=== PATIENT | male | born 1945 | race Caucasian/White ===

== ENCOUNTER → 2022-01-04 12:34 | Outpatient (CLI) | payer MEDICARE, SELFPAY ==
--- NOTE | ~2022-01-04 | CT_ITS ---
EXAMINATION: CT brain wo con DATE: 01/04/2022 13:08 INDICATION: Headaches TECHNIQUE: Computed tomography (CT) of the head was performed without intravenous contrast. The mA wa s adjusted according to patient size. Iterative reconstruction technique was employed. Exam dose: 59 9.57 mGy-cm total exam DLP. COMPARISON: None FINDINGS: Right vertebral artery calcification and prominent bilateral carotid siphon and supraclinoi d internal carotid artery calcifications. There is nonspecific diminished attenuation of the cerebral white matter, likely due to chronic small vessel ischemic changes. There is prominent cerebral and moderately prominent cerebellar volume loss. No intracranial mass lesion or hemorrhage or cerebrovascular accident. No midline shift or mass effec t effect. No subdural or epidural hematoma. No fracture or bone destruction of the cranial vault. Included paranasal sinuses and mastoid air cells are normally developed and aerated. IMPRESSION: Cerebral atherosclerosis and chronic small vessel ischemic changes of the cerebral white matter Moderately prominent cerebral and cerebellar volume loss No acute intracranial finding Reviewed, dictated and finalized at [facility]. Reviewed, dictated and finalized at [facility]. PRESSER
== END ==
PROVIDERS: PCP Family Medicine; Visit Provider Family Medicine
DX: R51.9 Headache, unspecified (principal); M79.661 Pain in right lower leg; M70.61 Trochanteric bursitis, right hip; I67.2 Cerebral atherosclerosis
CPT/HCPCS: 70450

== ENCOUNTER 2025-07-26 12:43 | Emergency (ER) | payer OTHER, SELFPAY ==
[2025-07-26 13:01] VITALS: BP 129/77; PULSE 68; RESP 16; TEMP 36.1; O2SAT 98
[2025-07-26 13:12] LABS: EDUAAPPEAR Cloudy; EDUABILI Negative (Negative); EDUABLOOD 3+ (Negative); EDUACOLOR1 Yellow; EDUAGLUCOSE Negative (Negative); EDUAKETONE Negative (Negative); EDUALEUKO 3+ (Negative); EDUANITRATE Negative (Negative); EDUAPH 5.5; EDUAPROTEIN 2+ (Negative); EDUASPGRAVITY 1.020; EDUAUROBILI 0.2
--- NOTE | 2025-07-26 13:29 | ED.GENADULT ---
HPI - General Adult General Chief complaint: Urogenital-Male Stated complaint: UTI SYMPTOMS Source: patient Mode of arrival: ambulatory Limitations: no limitations History of Present Illness HPI narrative: Patient presents with concerns that he has a urinary tract infection. He indicates he was diagnosed with a urinary tract infection by his primary care provider recently he was given Cipro. He took a days worth of medication. He states he was provided with additional quantity as historically he has required two rounds of antibiotics to treat his infections. He lost the additional quantity. About a week ago he had recurrence of his symptoms that include dysuria, urinary frequency, and urgency. He has chronic nocturia but about 2 months ago it went for 1-2 per night nocturia to 3-5 episode per night. He has somewhat decreased force of urinary stream. He has underlying diabetes but states his blood sugars stay under 160. he has a history of prostate cancer that was treated about 12 years ago with radiation. He states his PSA is borderline, creeping up, but he is scheduled for a prostate exam this week. No fever, chills, nausea, vomiting, abdominal pain, low back pain. Related Data Home Medications ?Medication ?Instructions ?Recorded ?Confirmed ?Last Taken ?Type albuterol sulfate 90 mcg/actuation inhalation 07/26/25 Unknown History aerosol inhaler carvedilol 3.125 mg tablet mg 07/26/25 Unknown History insulin glargine 100 unit/mL (3 unit subcut 07/26/25 Unknown History mL) subcutaneous pen (Lantus Solostar U-100 Insulin) Allergies Allergy/AdvReac Type Severity Reaction Status Date / Time No Known Allergies Allergy Verified 07/26/25 13:18 Review of Systems Review of Systems: CONSTITUTIONAL: Denies fever, chills, or sweats. EYES: Denies visual changes, redness, or discharge. ENT: Denies rhinorrhea, congestion, sore throat, or otalgia. CARDIOVASCULAR: Denies chest pain, palpitations, or edema. RESPIRATORY: Denies cough or dyspnea. GASTROINTESTINAL: Denies abdominal pain, nausea, vomiting, or diarrhea. GENITOURINARY: Reports chronic nocturia, with increased number of episodes per night within the last few months. Reports decreased force of urinary stream which is chronic. Reports acute dysuria, urinary frequency and urgency. SKIN: Denies rash or itching. MUSCULOSKELETAL: Denies back pain, joint pain, or myalgia. NEUROLOGIC: Denies headache, numbness, dizziness, or weakness. PSYCHIATRIC: Denies anxiety or depression. [facility] Past Medical History Medical History DVT (deep venous thrombosis) Hypertension History of prostate cancer Coronary artery disease Surgical History Surgical History History of heart artery stent Family History Family History Mother Family history non-contributory Social History Social History Substance use: never Gender identity (if verbalized by the patient): Male Spiritual care concerns: No Exam Narrative: GENERAL: Well-appearing, well-nourished, and in no acute distress. HEAD: Normocephalic, atraumatic. EYES: PERRLA and EOMI. ENT: Nares clear, no rhinorrhea or epistaxis. Mucous membranes moist. Oropharynx without tonsillar hypertrophy exudate or other lesions. Bilateral TMs pearly moreno nonbulging NECK: Supple. No adenopathy or masses. No carotid bruits or JVD CHEST: Clear to auscultation. No respiratory distress. No wheezes rales or rhonchi HEART: Regular rate and rhythm. No murmur heard. Normal peripheral pulses. ABDOMEN: Soft, nontender, nondistended, normal active bowel sounds. EXTREMITIES: Normal range of motion. No edema. SKIN: Warm, dry, no rash. NEURO: No focal deficits. Alert and oriented x3. PSYCH: Normal mood and affect. Course Course Emergency Course: This is a 79-year-old male who presented for evaluation of urinary symptoms. I recommended prostate exam is this could be contributing to his symptoms. He declined. He states he has a prostate exam scheduled for this week. He has a cassettes present in urine. Will treat with Bactrim. Send urine for culture. Follow-up with primary this week. In the event that he has worsening symptoms or is fever, chills, nausea vomiting he should go to the emergency department. Patient in agreement with plan of care. Level of Care: Express Care Visit Vital Signs Vital signs: Vital Signs Temperature 36.1 C L 07/26/25 13:01 Pulse Rate 68 07/26/25 13:01 Respiratory Rate 16 07/26/25 13:01 Blood Pressure 129/77 07/26/25 13:01 Pulse Oximetry 98 07/26/25 13:01 Temperature 36.1 C L 07/26/25 13:01 Pulse Rate 68 07/26/25 13:01 Respiratory Rate 16 07/26/25 13:01 Blood Pressure 129/77 07/26/25 13:01 Pulse Oximetry 98 07/26/25 13:01 Medical Decision Making Vital Signs Vital Signs: Vital Signs Temperature 36.1 C L 07/26/25 13:01 Pulse Rate 68 07/26/25 13:01 Respiratory Rate 16 07/26/25 13:01 Blood Pressure 129/77 07/26/25 13:01 Pulse Oximetry 98 07/26/25 13:01 Temperature 36.1 C L 07/26/25 13:01 Pulse Rate 68 07/26/25 13:01 Respiratory Rate 16 07/26/25 13:01 Blood Pressure 129/77 07/26/25 13:01 Pulse Oximetry 98 07/26/25 13:01 Lab Data Labs: Lab Results 07/26/25 Range/Units 13:10 POC Urine Color Yellow POC Urine Clarity Cloudy POC Urine pH 5.5 POC Ur Specif [place] 1.020 POC Urine Protein 2+ (Negative) POC Ur Glucose (UA) Negative (Negative) POC Urine Ketones Negative (Negative) POC Urine Blood 3+ (Negative) POC Urine Nitrite Negative (Negative) POC Urine Bilirubin Negative (Negative) POC Urine Urobilinogen 0.2 POC U Leukocyte Esteras 3+ (Negative) Discharge Plan Discharge Clinical Impression: Acute UTI Patient Disposition: Home Condition: Stable Instructions: Antibiotic Form, Urinary Tract Infection in Men (ED) Patient Language: Mohawk Prescriptions: New sulfamethoxazole-trimethoprim [Bactrim DS] 800-160 mg tablet 1 tablet PO Q12H Qty: 14 0RF No Action carvedilol 3.125 mg tablet albuterol sulfate 90 mcg/actuation HFA aerosol inhaler INHALATION insulin glargine [Lantus Solostar U-100 Insulin] 100 unit/mL (3 mL) insulin pen SUBCUT Follow-up/Referrals: Perlita Hutson MD [Primary Care Provider, Family Practice] Time of Disposition: 13:19
== END 2025-07-26 13:25 | disposition home or self-care (01) ==
PROVIDERS: Emergency Provider Nurse Practitioner; PCP Family Medicine
DX: N39.0 Urinary tract infection, site not specified (principal); I10 Essential (primary) hypertension; I25.10 Atherosclerotic heart disease of native coronary artery without angina pectoris; E11.9 Type 2 diabetes mellitus without complications; Z79.4 Long term (current) use of insulin; Z86.718 Personal history of other venous thrombosis and embolism; Z85.46 Personal history of malignant neoplasm of prostate; Z92.3 Personal history of irradiation
CPT/HCPCS: 81003; 87086; 87147; 87186; 99203; G0463